=== PATIENT | female | born 2000 | race African-American/Black ===

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

== ENCOUNTER 2022-05-20 04:21 | Emergency (ER) | payer OTHER ==
[2022-05-20] MEDS ORDERED: Morphine 2 MG/ML VIAL ONE (04:49)
== END 2022-05-20 05:00 | disposition home or self-care (01) ==
LOC: ERS 04:21
DX: M62.830 Muscle spasm of back (principal)
CPT/HCPCS: 96372; 99283; J2270